=== PATIENT | female | born 1965 | race Caucasian/White ===

== ENCOUNTER 2019-01-03 12:02 | Day surgery (SDC) | payer BC ==
[~2019-01-03] VITALS: Ht 172.7 cm; Wt 86.2 kg
--- NOTE | ~2019-01-03 | OR ---
[facility] [address], [place] [address] Draft DATE OF OPERATION: 01/03/2019 SURGEON: Jose Antonio Chacon MD PREOPERATIVE DIAGNOSIS: Colon screening. POSTOPERATIVE DIAGNOSES: 1. Diverticular changes in sigmoid and left colon. 2. Hyperplastic polyps x2 of rectosigmoid. PROCEDURE: Total colonoscopy to cecum with cold morcellation polypectomy x2. ANESTHESIA: Intravenous sedation, fentanyl 125 mcg, and Versed 6 mg. INDICATION: This 53-year-old white woman is a healthy and a patient of LAILA Talley. She has been referred for screening colonoscopy. She has no symptoms of bleeding, diarrhea, or constipation and has no family history of colon cancer. She does have hypertension. She was admitted at this time to undergo colonoscopy. She understands the risks of bleeding, infection, and perforation. FINDINGS: The prep was excellent. Complete colonoscopy was undertaken to the cecum without problem. She had numerous diverticula of the sigmoid and left colon and two small hyperplastic polyps of the rectum. DESCRIPTION OF PROCEDURE: The patient was brought to the endoscopy suite and placed in lateral decubitus position given intravenous sedation to a point of slurred speech and nystagmus. Digital rectal examination was normal. An Olympus video colonoscope was passed in the rectum and manipulated throughout the colon ultimately intubating the cecum itself. The ileocecal valve and appendiceal orifice were normal. The scope was withdrawn from that point and examination throughout showed no sign of abnormality other than numerous diverticula as were seen on passage of the scope. These were in the left colon and in the sigmoid. In the low rectum in the rectosigmoid area, there were two hyperplastic polyps. They were excised with cold PATIENT NAME: ERIC MATA OPERATIVE REPORT DATE OF : 63 REPORT #: [id number] PHYSICIAN: JOSE ANTONIO CHACON MD PCP: ELAINE GHOSH REPORT IS CONFIDENTIAL AND NOT TO BE RELEASED WITHOUT AUTHORIZATION [facility] [address], [place] [address] Draft morcellation technique. Retroflexed view showed no other abnormality. The scope was straightened, withdrawn, and removed. The patient was taken to recovery room in good condition. CONCLUDING DIAGNOSES: 1. Diverticulosis. 2. Hyperplastic polyps. PLAN: Recommend repeat colonoscopy in 10 years unless pathology report shows adenomas (quite unlikely). Colonoscopy can be done sooner if symptoms should occur. Recommend high-fiber diet on the basis of her diverticulosis. She will return to the ongoing care of LAILA Talley. MD WALLY Garcia/JOANNAL /[id number] cc: LAILA Talley Copies: ELAINE GHOSH ~ PATIENT NAME: ERIC MATA OPERATIVE REPORT DATE OF : 63 REPORT #: [id number] PHYSICIAN: JOSE ANTONIO CHACON MD PCP: ELAINE GHOSH REPORT IS CONFIDENTIAL AND NOT TO BE RELEASED WITHOUT AUTHORIZATION
[~2019-01-03 12:02] MED LIST: TRIAMTERENE-HC1 EAC3 PO
--- NOTE | 2019-01-03 13:44 | NUR ---
01/03/19 1344 Rula Schwartz 1339- PT TO PACU WITH EYES OPEN. RESPONDS TO QUESTIONS APPROPRIATELY. BREATHNG UNLABORED AND SP02>95% ON RA. DENIES PAIN AND NAUSEA.
== END 2019-01-03 14:15 | disposition home or self-care (01) ==
LOC: OPS 12:02 → DS 12:02 → OPS 13:00
PROVIDERS: Surgery
PROC: 0DBN8ZZ Excision of Sigmoid Colon, Via Natural or Artificial Opening Endoscopic (ICD-10-PCS; principal; 2019-01-03 13:00)
DX: Z12.11 Encounter for screening for malignant neoplasm of colon (principal); K63.5 Polyp of colon; K57.30 Diverticulosis of large intestine without perforation or abscess without bleeding; I10 Essential (primary) hypertension
CPT/HCPCS: 99153; G0500; J2250; J3010